=== PATIENT | female | born 1970 | race Caucasian/White ===

== ENCOUNTER → 2017-09-30 12:52 | Outpatient (CLI) | payer BC, SELFPAY ==
--- NOTE | 2017-09-30 12:57 | US_ITS ---
US transvaginal HISTORY: Right lower quadrant pain ITS.REASON: Abdominal/pelvic pain ORDERING PHYSICIAN: Cem Richmond MD PATIENT AGE: 46 years COMPARISON: None FINDINGS: The uterus is 10 x 6 x 7.3 cm with a combined endometrial thickness of 14 mm. The uterus is thickened There are multiple uterine fibroids present is difficult to determine the exact site of the fibroids. There are at least 5 fibroids present the largest along the posterior aspect of the uterine body measuring 5 x 4 cm. There is a partially calcified fibroid at 3 cm an additional 3.5 x 3.4 cm fibroid in the mid aspect of the uterus towards the fundus and a smaller 8 mm fibroid anteriorly The left ovary is 3.7 x 0.8 cm and contains a 2 cm x 2.8 cm cyst. The right ovary contains a small follicle at 9 mm. No cul-de-sac fluid evident. IMPRESSION: 1. Enlarged uterus with extensive fibroid involvement as described above. 2. Thickened endometrium at 14 mm. 3. 2.8 cm left ovarian cyst
== END ==
PROVIDERS: PCP Family Medicine; Visit Provider Nurse Practitioner Obstetrics & Gynecology
DX: R10.9 Unspecified abdominal pain (principal)
CPT/HCPCS: 76830

== ENCOUNTER → 2018-04-06 13:18 | Outpatient (CLI) | payer BC, SELFPAY ==
--- NOTE | 2018-04-06 13:34 | XR_ITS ---
XR chest 2V HISTORY: ITS.REASON: Edema ORDERING PHYSICIAN: SB Black PATIENT AGE: 47 years COMPARISON: None FINDINGS: The cardiomediastinal silhouette and pulmonary vascularity are within normal limits. The lungs are clear without infiltrates, suspicious nodules, or pleural effusions. A 7 mm nodular opacity is present in the right perihilar region nonspecific and may represent a granuloma. No acute bony abnormalities. IMPRESSION: 1. No acute finding. 2. Right perihilar nodular density possibly related to a granuloma. Follow-up radiograph in 6 months may confirm short-term stability
[2018-04-06 18:30] LABS: Basophils % 0.3 % (0.1-2.0); Eosinophils # 0.1 K/mm3 (0.0-0.4); Eosinophils % 1.9 % (0.1-12.0); Hematocrit 42.6 % (37.0-47.0); Lymphocytes # 1.3 K/mm3 (0.7-4.5); Lymphocytes % 23.9 K/mm3 (10-50); Mean Corpuscular Hemoglobin 32.6 pg (27.0-31.2); Mean Corpuscular Volume 98.8 fl (81-99); Mean Platelet Volume 8.5 fl (7.4-10.4); Monocytes # 0.3 K/mm3 (0.1-1.0); Monocytes % 5.8 % (1.7-9.3); Neutrophils # 3.8 K/mm3 (1.8-7.8); Neutrophils % 68.3 % (37.0-80.0); Platelet Count 251 K/mm3 (142-424); Red Blood Count 4.31 M/mm3 (4.20-5.40); Red Cell Distribution Width 12.7 % (11.5-17.5); White Blood Count 5.6 K/mm3 (4.8-10.8)
[2018-04-06 18:49] LABS: Alanine Aminotransferase 19 U/L (12-78); Albumin Level 3.9 gm/dL (3.4-5.0); Albumin/Globulin Ratio 1.2 (1.1-1.8); Alkaline Phosphatase 66 U/L (46-116); Anion Gap 13.8 mEq/L (5-15); Aspartate Amino Transferase 15 U/L (15-37); Bilirubin,Total 0.6 mg/dL (0.2-1.0); Blood Urea Nitrogen 12 mg/dL (7-18); Calcium 8.9 mg/dL (8.5-10.1); Carbon Dioxide 24 mmol/L (21.0-32.0); Chloride 103 mmol/L (98-107); Cholesterol 184 mg/dL (140-200); Creatinine,Serum 1.06 mg/dL (0.55-1.02); Estimated Glomerular Filt Rate 56 ml/min (>60); GFR (African American) 68 ML/MIN (>60); Globulin 3.3 gm/dl (1.3-3.2); Glucose 99 mg/dL (74-106); HDL Cholesterol 61 mg/dL (29-89); LDL Cholesterol 108 mg/dL (0-130); Potassium 3.8 mmoL/L (3.5-5.1); Sodium 137 mmol/L (136-145); T4 (Thyroxine) 10.2 ug/dl (4.7-13.3); Thyroid Stimulating Hormone 1.05 uIU/ml (0.358-3.740); Total Protein,Serum 7.2 gm/dL (6.4-8.2); Triglycerides 77 mg/dL (30-200); VLDL Cholesterol 15 mg/dL (0-40)
[2018-04-08 20:27] LABS: Vitamin D 25 Hydroxy 40.5 ng/mL (30.0-100.0)
== END ==
LOC: LAB 13:18 → RAD 13:37
PROVIDERS: PCP Physician Assistant; Visit Provider Physician Assistant
DX: R60.9 Edema, unspecified (principal); R63.5 Abnormal weight gain
CPT/HCPCS: 71046; 80053; 80061; 82652; 84436; 84443; 85025

== ENCOUNTER → 2018-04-20 10:12 | Outpatient (CLI) | payer BC, SELFPAY ==
--- NOTE | 2018-04-20 10:17 | CA_ITS ---
PROCEDURE: 2-D M-mode and color Doppler study INDICATIONS FOR THE TEST: Chest pain COPD Heart Murmur Tobacco Smoking+ Palpitations Fatigue Syncope Edema+ Hypertension Diabetes Mellitus Rheumatic Fever SOB COVARRUBIAS+Obesity Hyperlipidemia Family History HD Additional History weight gain PATIENT INFORMATION HEIGHT: 69 WEIGHT: 190 GENDER: Female B/P: 128/80 2-D/M-MODE INTERPRETATION: 2-D MEASUREMENTS OBSERVED VALUES IN CMS Right Ventricular Dimension (RVDd) 2.1 Interventricular Septum (Thickness)(IVsd) 1.1 Left Ventricular Internal Dimensions(LVIDd) 3.9 Left Ventricular Posterior Wall (Thickness)(LVPWd) 1.1 Aortic Root 3.3 Aortic Cusp Separation 2.3 Left Atrial Dimensions (LAD) 3.0 2D 1. Left atrium is normal size, left ventricle is normal size, there is no concentric left ventricular hypertrophy, visually estimated ejection fraction 55% with no regional wall motion abnormality. 2. The right atrium and right ventricle are normal size and contractility. 3. The aortic, mitral and tricuspid valve are grossly normal. 4. The pulmonic valve is poorly visualized. 5. No significant pericardial effusion noted. DOPPLER INTERROGATION: Doppler interrogation of the aortic, mitral and tricuspid valvular presence of mild mitral and tricuspid regurgitation, tricuspid regurgitation jet velocity is insufficient for calculation of the right ventricular systolic pressure, diastolic parameters are within normal range. CONCLUSION: 1. Normal left ventricular size, preserved left ventricular systolic function, visually estimated ejection fraction 55% with no regional wall motion abnormality, diastolic parameters are within normal range. 2. Mild mitral and tricuspid regurgitation 3. No significant pericardial effusion noted.
== END ==
PROVIDERS: PCP Physician Assistant; Visit Provider Physician Assistant
DX: R60.9 Edema, unspecified (principal); R63.5 Abnormal weight gain
CPT/HCPCS: 93306

== ENCOUNTER → 2019-06-19 15:14 | Outpatient (POV) | payer BC, SELFPAY | PROVIDERS: Visit Provider Dermatology | DX: Z00.00 Encounter for general adult medical examination without abnormal findings (principal) ==

== ENCOUNTER → 2019-06-20 16:45 | Outpatient (CLI) | payer BC, SELFPAY ==
--- NOTE | 2019-06-20 16:46 | MM_ITS ---
PROCEDURE: MM DIG SCREENING MAMM BI W/CAD Patient Age:48Y CLINICAL INDICATION: Routine Screening Mamm no hormones no new complaints noncontributory family history COMPARISON: MAMMO SCREEN WOMEN'S CTR from 06/16/2012 DMSB DIG MAMM-SCREEN SAUL from 10/16/2015 DMDBAV DIG MAMM-DX SAUL W ADD VIEWS from 06/30/2016 TECHNIQUE: Standard CC and MLO images were obtained. R2 CAD reviewed. Additional axillary CC view both breast FINDINGS: Areas of moderate dense fibroglandular elements bilaterally Right breast: Again note somewhat separate island of stable fibroglandular tissue at the deep axillary tail right breast-unchanged since studies back to 2011. This area is best demonstrated on MLO view but also appear stable on the CC view and and nicely seen on the axillary CC view from today. Follow-up 1 year. Healthcare providersbreast exam towards axillary tail of both breast encouraged at where it may encounter palpation of the slight asymmetric tissue here Left breast the heterogeneous breast tissue extends from the central breast towards upper-outer quadrant and appears stable to previous studies with no significant new areas of concern but recommend follow up bilateral mammogram in 1 year IMPRESSION: No new areas of significant concern. Overall stable appearing mammogram. Follow-up 1 year Asymmetric areas of moderate dense breast tissue, most notable area towards axillary tail of the right breast-but appears stable since 2012 on mammography BI-RAD Category: 2 Benign Finding(s) FOLLOW-UP: 1YR 1 Year Follow-up (A letter has been sent to the patient regarding results of the study.) Dictated by: Koffi Massey MD 06/21/2019 20:20 Electronically signed by Koffi Massey MD in [place] 06/21/2019 20:20
== END ==
PROVIDERS: PCP Physician Assistant; Visit Provider Physician Assistant
DX: Z12.31 Encounter for screening mammogram for malignant neoplasm of breast (principal)
CPT/HCPCS: 77067

== ENCOUNTER → 2020-08-28 16:41 | Outpatient (CLI) | payer BC, SELFPAY ==
[2020-08-28 18:34] LABS: Basophils % 0.7 % (0.1-2.0); Eosinophils # 0.1 K/mm3 (0.0-0.4); Eosinophils % 1.3 % (0.1-12.0); Hemoglobin 14.8 g/dL (12.2-16.2); Lymphocytes # 1.4 K/mm3 (0.7-4.5); Lymphocytes % 24.5 % (10-50); Mean Corpuscular HGB Conc 32.3 g/dL (31.8-35.4); Mean Corpuscular Hemoglobin 32.8 pg (27.0-31.2); Mean Corpuscular Volume 101.7 fl (81-99); Mean Platelet Volume 9.1 fl (7.4-10.4); Monocytes # 0.3 K/mm3 (0.1-1.0); Monocytes % 5.9 % (1.7-9.3); Neutrophils # 3.8 K/mm3 (1.8-7.8); Neutrophils % 67.7 % (37.0-80.0); Platelet Count 251 K/mm3 (142-424); Red Blood Count 4.53 M/mm3 (4.20-5.40); Red Cell Distribution Width 12.6 % (11.5-17.5); White Blood Count 5.7 K/mm3 (4.8-10.8)
[2020-08-28 18:41] LABS: Alanine Aminotransferase 19 U/L (12-78); Albumin Level 4.8 g/dl (3.5-5.0); Albumin/Globulin Ratio 1.5 (1.1-1.8); Alkaline Phosphatase 76 U/L (38-126); Anion Gap 14.7 mEq/L (5-15); Aspartate Amino Transferase 26 U/L (14-36); Bilirubin,Total 0.5 mg/dl (0.2-1.3); Blood Urea Nitrogen 14 mg/dl (7-17); Calcium 10.3 mg/dl (8.4-10.2); Carbon Dioxide 23 mmol/L (22.0-30.0); Chloride 105 mmol/L (98-107); Chol/HDL Ratio 4.2 (1-3.5); Cholesterol 242 mg/dl (140-200); Estimated Glomerular Filt Rate 59 ml/min (>60); GFR (African American) 72 ML/MIN (>60); Globulin 3.2 g/dL (1.3-3.2); Glucose 107 mg/dl (74-100); HDL Cholesterol 57 mg/dl (40-60); Potassium 3.7 mmoL/L (3.5-5.1); Sodium 139 mmol/L (136-145); Triglycerides 170 mg/dl (30-150); VLDL Cholesterol 34 mg/dL (0-40)
[2020-08-28 18:52] LABS: Direct LDL Cholesterol 152.57 mg/dL (100-129)
[2020-08-28 18:56] LABS: Free T4 (Free Thyroxine) 1.39 ng/dl (0.78-2.19)
[2020-08-28 18:58] LABS: 25-OH Vitamin D, Total 22.2 ng/mL (30-100)
[2020-08-28 19:12] LABS: Thyroid Stimulating Hormone 1.89 uIU/mL (0.465-4.68)
[2020-08-30 12:41] LABS: FSH 5.5 mIU/mL (.); LH 6.3 mIU/mL (.); Progesterone 3.2 ng/mL (.)
[2020-09-02 14:49] LABS: Estrogen 197 pg/mL (.)
== END ==
PROVIDERS: Visit Provider Physician Assistant
DX: N95.1 Menopausal and female climacteric states (principal); R53.83 Other fatigue; R60.9 Edema, unspecified; E55.9 Vitamin D deficiency, unspecified
CPT/HCPCS: 80053; 80061; 82306; 82672; 83001; 83002; 84144; 84439; 84443; 85025

== ENCOUNTER → 2020-09-12 15:39 | Outpatient (CLI) | payer BC, SELFPAY ==
--- NOTE | 2020-09-12 15:39 | MM_ITS ---
PROCEDURE: MM DIG SCREENING MAMM BI W/CAD Digital Breast Tomosynthesis Included CLINICAL INDICATION: Breast cancer screening There is no personal or family history of breast cancer. COMPARISON: MG DMSB DIG MAMM-SCREEN SAUL from 10/16/2015 MG DMDBAV DIG MAMM-DX SAUL W ADD VIEWS from 06/30/2016 MG MM DIG SCREENING MAMM BI W/CAD from 06/20/2019 TECHNIQUE: Standard CC and MLO images and 3D Tomosynthesis was obtained. R2 CAD reviewed. FINDINGS: Moderate diffuse somewhat heterogenic fibroglandular densities are seen throughout both breast. Again noted is asymmetric fibroglandular elements near the axillary tail right breast. There are stable tiny benign-appearing nodular lesions right breast. There is no suspicious lesion in either breast and no suspicious microcalcifications. There are small nodes in both axilla. IMPRESSION: Moderate heterogenic breast density with no suspicious lesions seen BI-RAD Category: 2 Benign Finding(s) FOLLOW-UP: 1YR 1 Year Follow-up (A letter has been sent to the patient regarding results of the study.) Dictated by: Dr. Brent Price MD 09/17/2020 11:55 Dr. Brent Price MD in [place] 09/17/2020 11:55
== END ==
PROVIDERS: PCP Physician Assistant; Visit Provider Physician Assistant
DX: Z12.31 Encounter for screening mammogram for malignant neoplasm of breast (principal)
CPT/HCPCS: 77063; 77067

== ENCOUNTER → 2021-08-27 14:10 | Outpatient (CLI) | payer BC, SELFPAY ==
[2021-08-27 14:18] LABS: Basophils # 0.1 K/mm3 (0-0.2); Basophils % 1.2 % (0.1-2.0); Eosinophils # 0.1 K/mm3 (0.0-0.4); Eosinophils % 1.2 % (0.1-12.0); Hematocrit 47.2 % (37.0-47.0); Hemoglobin 15.3 g/dL (12.2-16.2); Lymphocytes # 1.2 K/mm3 (0.7-4.5); Lymphocytes % 21.4 % (10-50); Mean Corpuscular HGB Conc 32.5 g/dL (31.8-35.4); Mean Corpuscular Volume 104.5 fl (81-99); Mean Platelet Volume 8.6 fl (7.4-10.4); Monocytes # 0.4 K/mm3 (0.1-1.0); Monocytes % 6.2 % (1.7-9.3); Neutrophils # 3.9 K/mm3 (1.8-7.8); Platelet Count 307 K/mm3 (142-424); Red Blood Count 4.52 M/mm3 (4.20-5.40); Red Cell Distribution Width 13.3 % (11.5-17.5); White Blood Count 5.6 K/mm3 (4.8-10.8)
[2021-08-27 15:03] LABS: Alanine Aminotransferase 17 U/L (12-78); Albumin Level 4.7 g/dl (3.5-5.0); Albumin/Globulin Ratio 1.7 (1.1-1.8); Alkaline Phosphatase 76 U/L (38-126); Anion Gap 13.7 mEq/L (5-15); Aspartate Amino Transferase 25 U/L (14-36); Bilirubin,Total 0.5 mg/dl (0.2-1.3); Blood Urea Nitrogen 8 mg/dl (7-17); Calcium 9.9 mg/dl (8.4-10.2); Carbon Dioxide 25 mmol/L (22.0-30.0); Chloride 101 mmol/L (98-107); Chol/HDL Ratio 3.6 (1-3.5); Cholesterol 209 mg/dl (140-200); Estimated Glomerular Filt Rate 67 ml/min (>60); GFR (African American) 81 ML/MIN (>60); Globulin 2.7 g/dL (1.3-3.2); Glucose 89 mg/dl (74-100); HDL Cholesterol 58 mg/dl (40-60); Potassium 3.7 mmoL/L (3.5-5.1); Sodium 136 mmol/L (136-145); Total Protein,Serum 7.4 g/dl (6.3-8.2); Triglycerides 110 mg/dl (30-150); VLDL Cholesterol 22 mg/dL (0-40)
[2021-08-27 15:14] LABS: Direct LDL Cholesterol 131.94 mg/dL (100-129)
[2021-08-27 15:19] LABS: Free T4 (Free Thyroxine) 1.36 ng/dl (0.78-2.19)
[2021-08-27 15:20] LABS: 25-OH Vitamin D, Total 69.4 ng/mL (30-100)
[2021-08-27 15:34] LABS: Thyroid Stimulating Hormone 0.97 uIU/mL (0.465-4.68)
[2021-08-29 09:34] LABS: FSH 23.2 mIU/mL (.); LH 28.9 mIU/mL (.); Progesterone 0.3 ng/mL (.)
[2021-08-30 00:08] LABS: Estrogen 273 pg/mL (.)
== END ==
PROVIDERS: Visit Provider Nurse Practitioner Family
DX: E28.319 Asymptomatic premature menopause (principal); E03.9 Hypothyroidism, unspecified; R53.83 Other fatigue; K59.00 Constipation, unspecified
CPT/HCPCS: 80053; 80061; 82306; 82672; 83001; 83002; 84144; 84439; 84443; 85025

== ENCOUNTER → 2022-08-12 13:04 | Outpatient (CLI) | payer BC, SELFPAY ==
[2022-08-12 16:22] LABS: Chloride 103 mmol/L (98-107)
[2022-08-12 16:23] LABS: Potassium 4.3 mmoL/L (3.5-5.1); Sodium 139 mmol/L (136-145)
[2022-08-12 16:24] LABS: Basophils # 0.1 K/mm3 (0-0.2); Basophils % 1.3 % (0.1-2.0); Eosinophils # 0.1 K/mm3 (0.0-0.4); Eosinophils % 2.5 % (0.1-12.0); Hematocrit 46.4 % (37.0-47.0); Hemoglobin 14.9 g/dL (12.2-16.2); Lymphocytes # 1.3 K/mm3 (0.7-4.5); Lymphocytes % 24.7 % (10-50); Mean Corpuscular HGB Conc 32.2 g/dL (31.8-35.4); Mean Corpuscular Volume 99.3 fl (81-99); Mean Platelet Volume 9.7 fl (7.4-10.4); Monocytes # 0.3 K/mm3 (0.1-1.0); Monocytes % 5.8 % (1.7-9.3); Neutrophils # 3.5 K/mm3 (1.8-7.8); Neutrophils % 65.6 % (37.0-80.0); Platelet Count 291 K/mm3 (142-424); Red Blood Count 4.67 M/mm3 (4.20-5.40); White Blood Count 5.4 K/mm3 (4.8-10.8)
[2022-08-12 16:25] LABS: Alanine Aminotransferase 21 U/L (12-78); Alkaline Phosphatase 101 U/L (38-126); Anion Gap 13.3 mEq/L (5-15); Aspartate Amino Transferase 28 U/L (14-36); Bilirubin,Total 0.8 mg/dl (0.2-1.3); Blood Urea Nitrogen 13 mg/dl (7-17); Carbon Dioxide 27 mmol/L (22.0-30.0); Cholesterol 235 mg/dl (140-200); Estimated Glomerular Filt Rate 66 ml/min (>60); GFR (African American) 80 ML/MIN (>60); Triglycerides 145 mg/dl (30-150); VLDL Cholesterol 29 mg/dL (0-40)
[2022-08-12 16:26] LABS: Albumin Level 4.4 g/dl (3.5-5.0); Albumin/Globulin Ratio 1.5 (1.1-1.8); Calcium 9.5 mg/dl (8.4-10.2); Chol/HDL Ratio 4.4 (1-3.5); Glucose 116 mg/dl (74-100); HDL Cholesterol 53 mg/dl (40-60); Total Protein,Serum 7.4 g/dl (6.3-8.2)
[2022-08-12 16:36] LABS: Direct LDL Cholesterol 130.91 mg/dL (100-129)
[2022-08-12 16:56] LABS: Thyroid Stimulating Hormone 0.65 uIU/mL (0.465-4.68)
[2022-08-12 19:44] LABS: 25-OH Vitamin D, Total 43.8 ng/mL (30-100)
[2022-08-12 20:19] LABS: Vitamin B12 276 pg/mL (239-931)
[2022-08-14 08:15] LABS: FSH 46.2 mIU/mL (.); LH 48.2 mIU/mL (.); Testosterone,Total 17 ng/dL (4-50)
[2022-08-17 22:07] LABS: Estrogen 127 pg/mL (.)
== END ==
PROVIDERS: PCP Physician Assistant; Visit Provider Physician Assistant
DX: N95.1 Menopausal and female climacteric states (principal)
CPT/HCPCS: 80053; 80061; 82306; 82607; 82672; 83001; 83002; 84403; 84443; 85025

== ENCOUNTER → 2022-08-24 10:29 | Outpatient (POV) | payer BC, SELFPAY | PROVIDERS: Visit Provider Dermatology | DX: Z00.00 Encounter for general adult medical examination without abnormal findings (principal) ==

== ENCOUNTER → 2022-08-24 14:07 | Outpatient (CLI) | payer BC, SELFPAY ==
--- NOTE | 2022-08-24 14:07 | CT_ITS ---
FINAL REPORT CLINICAL HISTORY: lung cancer screening current smoker 1ppd x32 years FINDINGS: Low-Dose Chest CT Axial images were obtained from the lung apex to the mid abdomen by computed tomography. Low-dose protocol was utilized. CTDI vol (mGy): 2.90 DLP (mGy-cm): 91.16 There is no axillary adenopathy. There is no hilar or mediastinal adenopathy. The heart is proper size. There is no pericardial or pleural effusion. Lung window images demonstrate no suspicious infiltrate or nodule. There is ground-glass opacity in both lower lobes, subpleural, infectious or inflammatory etiology is favored. Limited images of the upper abdomen demonstrate cortical scarring in the left kidney. IMPRESSION: Lung RADS category 1. Recommend 12 month follow-up low-dose chest CT. Modifier S: Ground-glass opacities, pneumonia not excluded. Reviewed, Interpreted and Dictated by Mahi Moore MD Transcribed by Usha Rodriguez Authenticated and [facility]
== END ==
PROVIDERS: PCP Physician Assistant; Visit Provider Physician Assistant
DX: Z87.891 Personal history of nicotine dependence (principal); Z12.2 Encounter for screening for malignant neoplasm of respiratory organs
CPT/HCPCS: 71271

== ENCOUNTER → 2022-08-27 12:35 | Outpatient (CLI) | payer BC, SELFPAY ==
--- NOTE | 2022-08-27 12:35 | MM_ITS ---
PROCEDURE INFORMATION: Exam: MG Bilateral Screening 3D Mammography Exam date and time: 08/27/2022 12:45 PM Age: 51 years old Clinical indication: Screening mammogram. TECHNIQUE: Imaging protocol: Bilateral Screening tomosynthesis and 2D mammography including computer-aided detection (CAD) when performed. COMPARISON: 1. MG MM DIG SCREENING MAMM BI W/CAD 09/12/2020 3:40 PM 2. MG MM DIG SCREENING MAMM BI W/CAD 06/20/2019 4:51 PM 3. MG DMDBAV DIG MAMM-DX SAUL W ADD VIEWS 06/30/2016 1:16 PM 4. MG DMSB DIG MAMM-SCREEN SAUL 10/16/2015 10:55 AM FINDINGS: MAMMOGRAPHY: Breast composition: There are scattered areas of fibroglandular density. Mass: None. Architectural distortion: No new or suspicious architectural distortion. Calcifications: No new or suspicious calcifications are present Asymmetric density: No new or suspicious asymmetric density is present Skin thickening: None. Axillary adenopathy: None. IMPRESSION: No mammographic evidence of malignancy. Recommend annual screening mammography unless otherwise clinically indicated. ASSESSMENT: BI-RADS category 1: Negative
== END ==
PROVIDERS: PCP Physician Assistant; Visit Provider Physician Assistant
DX: Z12.31 Encounter for screening mammogram for malignant neoplasm of breast (principal)
CPT/HCPCS: 77063; 77067

== ENCOUNTER 2023-08-11 09:50 | Outpatient (CLI) | payer BC, SELFPAY ==
[2023-08-11 19:11] LABS: Alanine Aminotransferase 29 U/L (12-78); Albumin Level 4.1 g/dl (3.5-5.0); Albumin/Globulin Ratio 1.5 (1.1-1.8); Alkaline Phosphatase 97 U/L (38-126); Anion Gap 9.8 mEq/L (5-15); Aspartate Amino Transferase 44 U/L (14-36); Bilirubin,Total 0.5 mg/dl (0.2-1.3); Blood Urea Nitrogen 16 mg/dl (7-17); Calcium 9.1 mg/dl (8.4-10.2); Carbon Dioxide 25 mmol/L (22.0-30.0); Chloride 103 mmol/L (98-107); Chol/HDL Ratio 4.5 (1-3.5); Cholesterol 226 mg/dl (140-200); Estimated Glomerular Filt Rate 66 ml/min (>60); GFR (African American) 80 ML/MIN (>60); Globulin 2.8 g/dL (1.3-3.2); Glucose 113 mg/dl (74-100); HDL Cholesterol 50 mg/dl (40-60); Potassium 3.8 mmoL/L (3.5-5.1); Sodium 134 mmol/L (136-145); Total Protein,Serum 6.9 g/dl (6.3-8.2); Triglycerides 112 mg/dl (30-150); VLDL Cholesterol 22 mg/dL (0-40)
[2023-08-11 19:25] LABS: Direct LDL Cholesterol 145.12 mg/dL (100-129)
[2023-08-11 19:32] LABS: 25-OH Vitamin D, Total 51.8 ng/mL (30-100)
[2023-08-11 19:44] LABS: Thyroid Stimulating Hormone 1.04 uIU/mL (0.465-4.68)
[2023-08-11 19:50] LABS: Basophils % 0.6 % (0.1-2.0); Eosinophils # 0.2 K/mm3 (0.0-0.4); Eosinophils % 3.1 % (0.1-12.0); Hematocrit 45.2 % (37.0-47.0); Hemoglobin 15.2 g/dL (12.2-16.2); Lymphocytes # 1.5 K/mm3 (0.7-4.5); Lymphocytes % 29.5 % (10-50); Mean Corpuscular HGB Conc 33.8 g/dL (31.8-35.4); Mean Corpuscular Hemoglobin 33.7 pg (27.0-31.2); Mean Platelet Volume 9.7 fl (7.4-10.4); Monocytes # 0.3 K/mm3 (0.1-1.0); Monocytes % 6.8 % (1.7-9.3); Neutrophils % 60.1 % (37.0-80.0); Platelet Count 242 K/mm3 (142-424); Red Blood Count 4.52 M/mm3 (4.20-5.40)
[2023-08-11 20:01] LABS: Iron 106 ug/dL (37-170)
[2023-08-11 20:03] LABS: Vitamin B12 317 pg/mL (239-931)
[2023-08-11 20:12] LABS: Total Iron Binding Capacity 324 ug/dL (265-497)
[2023-08-11 20:39] LABS: Ferritin 74.3 ng/ml (11.1-264)
== END 2023-08-12 23:59 | disposition home or self-care (01) ==
PROVIDERS: PCP Physician Assistant; Visit Provider Physician Assistant
DX: G25.81 Restless legs syndrome (principal); R60.9 Edema, unspecified; R73.09 Other abnormal glucose; R74.01 Elevation of levels of liver transaminase levels; E66.3 Overweight; Z68.29 Body mass index [BMI] 29.0-29.9, adult; Z79.899 Other long term (current) drug therapy
CPT/HCPCS: 80053; 80061; 82306; 82607; 82728; 83036; 83540; 83550; 84443; 85025

== ENCOUNTER 2023-08-25 15:52 | Outpatient (CLI) | payer BC, SELFPAY ==
--- NOTE | 2023-08-25 15:52 | MM_ITS ---
PROCEDURE INFORMATION: Exam: MG Bilateral Screening 3D Mammography Exam date and time: 08/25/2023 3:51 PM Age: 52 years old Clinical indication: Screening examination TECHNIQUE: Imaging protocol: Bilateral Screening tomosynthesis and 2D mammography including computer-aided detection (CAD) when performed. COMPARISON: 1. MG MM DIG SCREENING MAMM BI W/CAD 08/27/2022 12:45 PM 2. MG MM DIG SCREENING MAMM BI W/CAD 09/12/2020 3:40 PM FINDINGS: MAMMOGRAPHY: Breast composition: There are scattered areas of fibroglandular density. Mass: None. Architectural distortion: None. Calcifications: No suspicious calcifications. Asymmetric density: None. Skin thickening: None. Axillary adenopathy: None. IMPRESSION: No mammographic evidence of malignancy. Annual screening is recommended unless otherwise clinically indicated. ASSESSMENT: BI-RADS Category 1: Negative
== END 2023-08-25 23:59 ==
LOC: RAD 15:52
PROVIDERS: PCP Physician Assistant; Visit Provider Physician Assistant
DX: Z12.39 Encounter for other screening for malignant neoplasm of breast (principal)
CPT/HCPCS: 77063; 77067

== ENCOUNTER 2024-05-21 13:42 | Outpatient (CLI) | payer BC, SELFPAY ==
[2024-05-21 12:07] LABS: Microscopic, Urine URINE MICROSCOPIC (MICROSCOPIC)
[2024-05-21 12:43] LABS: Basophils % 0.5 % (0.1-2.0); Eosinophils # 0.1 K/mm3 (0.0-0.4); Hemoglobin 15.8 g/dL (12.2-16.2); Lymphocytes # 1.3 K/mm3 (0.7-4.5); Lymphocytes % 24.3 % (10-50); Mean Corpuscular Hemoglobin 34.1 pg (27.0-31.2); Mean Corpuscular Volume 97.3 fl (81-99); Mean Platelet Volume 8.6 fl (7.4-10.4); Monocytes # 0.4 K/mm3 (0.1-1.0); Monocytes % 6.3 % (1.7-9.3); Neutrophils # 3.7 K/mm3 (1.8-7.8); Platelet Count 220 K/mm3 (142-424); Red Blood Count 4.62 M/mm3 (4.20-5.40); Red Cell Distribution Width 13.3 % (11.5-17.5); White Blood Count 5.5 K/mm3 (4.8-10.8)
[2024-05-21 12:54] LABS: Appearance,Urine CLEAR (Clear); Bilirubin,Urine Negative (Negative); Blood, Urine Negative (Negative); Color,Urine YELLOW (Yellow); Glucose,Urine (UA) Negative (Negative); Ketones,Urine Negative (Negative); Leukocyte Esterase,Urine Negative (Negative); Nitrate,Urine Negative (Negative); Protein,Urine Negative (Negative); Urobilinogen,Urine 0.2 EU/dl (0.2)
[2024-05-21 13:00] LABS: Albumin Level 4.8 g/dl (3.5-5.0); Chloride 101 mmol/L (98-107); Sodium 135 mmol/L (136-145)
[2024-05-21 13:01] LABS: Potassium 3.5 mmoL/L (3.5-5.1)
[2024-05-21 13:03] LABS: Alanine Aminotransferase 21 U/L (12-78); Albumin/Globulin Ratio 1.7 (1.1-1.8); Alkaline Phosphatase 100 U/L (38-126); Anion Gap 11.5 mEq/L (5-15); Aspartate Amino Transferase 23 U/L (14-36); Bilirubin,Total 0.7 mg/dl (0.2-1.3); Blood Urea Nitrogen 16 mg/dl (7-17); Carbon Dioxide 26 mmol/L (22.0-30.0); Cholesterol 259 mg/dl (140-200); Estimated Glomerular Filt Rate 66 ml/min (>60); GFR (African American) 80 ML/MIN (>60); Globulin 2.8 g/dL (1.3-3.2); Total Protein,Serum 7.6 g/dl (6.3-8.2); Triglycerides 164 mg/dl (30-150); VLDL Cholesterol 33 mg/dL (0-40)
[2024-05-21 13:04] LABS: Calcium 9.9 mg/dl (8.4-10.2); Glucose 107 mg/dl (74-100); HDL Cholesterol 52 mg/dl (40-60); Iron 158 ug/dL (37-170)
[2024-05-21 13:13] LABS: Total Iron Binding Capacity 337 ug/dL (265-497)
[2024-05-21 13:15] LABS: Direct LDL Cholesterol 156.71 mg/dL (100-129)
[2024-05-21 13:21] LABS: Squamous Epithelial Cell,Urine Occasional #/hpf (0-5)
[2024-05-21 13:22] LABS: 25-OH Vitamin D, Total 67.8 ng/mL (30-100)
[2024-05-21 13:35] LABS: Thyroid Stimulating Hormone 1.31 uIU/mL (0.465-4.68)
[2024-05-21 13:39] LABS: Ferritin 79.8 ng/ml (11.1-264)
[2024-05-21 13:54] LABS: Vitamin B12 235 pg/mL (239-931)
[2024-05-21 14:15] LABS: Free T4 (Free Thyroxine) 1.36 ng/dl (0.78-2.19)
[2024-05-21 14:18] LABS: Hemoglobin A1C 5.1 % (4.0-6.0)
[2024-05-21 14:48] LABS: HIV (1&2) Antibody Rapid NONREACTIVE (NONREACTIVE)
[2024-05-22 08:19] LABS: HCV Ab Non Reactive (Non Reactive)
== END 2024-05-21 23:59 | disposition home or self-care (01) ==
LOC: LAB.DROPOF 13:42
PROVIDERS: PCP Nurse Practitioner Family; Visit Provider Nurse Practitioner Family
DX: Z11.4 Encounter for screening for human immunodeficiency virus [HIV] (principal); R00.2 Palpitations; R53.83 Other fatigue; Z11.59 Encounter for screening for other viral diseases; R60.0 Localized edema; Z13.1 Encounter for screening for diabetes mellitus; E53.8 Deficiency of other specified B group vitamins; E78.5 Hyperlipidemia, unspecified
CPT/HCPCS: 80050; 80053; 80061; 81001; 82306; 82607; 82728; 83036; 83540; 83550; 84439; 84443; 85025; 86803; 87086; 87389

== ENCOUNTER 2024-05-23 12:03 | Outpatient (CLI) | payer BC, SELFPAY | END 2024-05-23 23:59 | disposition home or self-care (01) | LOC: RT 12:04 | PROVIDERS: PCP Nurse Practitioner Family; Visit Provider Nurse Practitioner Family | DX: R00.2 Palpitations (principal) | CPT/HCPCS: 93270 ==

== ENCOUNTER 2024-06-04 12:38 | Outpatient (CLI) | payer BC, SELFPAY ==
--- NOTE | 2024-06-04 12:43 | CA_ITS ---
APPROVED REPORT EXAM: Comprehensive 2D, Doppler, and color-flow Echocardiogram Realty Loan Specialist: Shani Pike RVT Ht: 5 ft 10 in Wt: 198lbs BSA: 2.08 BP: 128/88 mmHg Indications: EDEMA,PALPS,SMOKER,HLD 2D Dimensions LA Volume 33.20 mL LA Volume Index 15.96 mL/m2 (M/F) 16-34 M-Mode Dimensions RVDd 1.52 cm (0.9-2.6) LA Diam 2.93 cm (1.9-4.0) LVDd 4.97 cm (3.5-5.7) LVDs 3.34 cm (3.5-5.7) IVSd 0.95 cm (0.6-1.1) PWd 0.53 cm (0.6-1.1) EF (Teich) 61.10% FS 32.80% EDV (Teich) 116.60 mL TAPSE 2.54 (<1.7) ESV (Teich) 45.40 mL LV Diastology E Decel Time 147 (160-240 msec) E/A Ratio 1.2 Aortic Valve NIA Index 1.16 cm2/m2 AoV Peak Maxx. 120.0 (50-130 cm/s) AO Peak GR. 5.70 mmHg AO Mean GR. 3.70 (<5 mmHg) AO VTI 24.4 (18-25 cm) NIA (VTI) 2.47 (2.5-4.5 cm2) Mitral Valve MV E Max Maxx. 64.0 (40-130 cm/s) MV A Velocity 54.0 (40-130 cm/s) E/A Ratio 1.17 MV PHT 43.0 ms Pulmonary Valve PV Peak Velocity 88.0 (50-150 cm/s) Left Ventricle The left ventricle is normal size. The left ventricular systolic function is normal. The left ventricular ejection fraction is within the normal range. There is normal left ventricular wall thickness. There is normal LV segmental wall motion. The left ventricular diastolic function is normal. LVEF is 55%. Right Ventricle The right ventricle is normal size. The right ventricular systolic function is normal. Atria The left atrium size is normal. The right atrium size is normal. There is no Doppler evidence of interatrial shunt. Aortic Valve The aortic valve opens well. There is no aortic valvular stenosis. No aortic regurgitation is present. Mitral Valve The mitral valve is normal in structure. No evidence of mitral valve stenosis. There is no mitral valve regurgitation noted. Tricuspid Valve The tricuspid valve leaflets are thin and pliable. Trace tricuspid regurgitation. There is insufficient TR jet to estimate RVSP. Pulmonic Valve The pulmonary valve is normal in structure. Trace pulmonic regurgitation. Great Vessels The aortic root is normal in size. The ascending aorta is not well-visualized. IVC is normal in size and collapses >50% with inspiration. Pericardium There is no pericardial effusion. Other Information Study Quality: Adequate Conclusion Normal biventricular systolic function. No significant valvular stenosis or regurgitation. Electronically signed by : Kitty Nguyen MD 06/05/2024 14:56:23
== END 2024-06-04 23:59 | disposition home or self-care (01) ==
LOC: RT 12:40
PROVIDERS: PCP Nurse Practitioner Family; Visit Provider Nurse Practitioner Family
DX: R00.2 Palpitations (principal); R60.0 Localized edema; R91.8 Other nonspecific abnormal finding of lung field; F17.210 Nicotine dependence, cigarettes, uncomplicated
CPT/HCPCS: 71271; 93306

== ENCOUNTER 2024-06-05 15:17 | Outpatient (CLI) | payer BC, SELFPAY ==
[2024-06-05 16:46] LABS: Creatinine,Urine Random 38 mg/dL (Not Estab.); Microalbumin < 6.000 mg/L (0-16.7)
== END 2024-06-05 23:59 | disposition home or self-care (01) ==
LOC: LAB 15:18
PROVIDERS: PCP Nurse Practitioner Family; Visit Provider Internal Medicine
DX: R60.9 Edema, unspecified (principal); R00.2 Palpitations; E78.5 Hyperlipidemia, unspecified; F17.200 Nicotine dependence, unspecified, uncomplicated
CPT/HCPCS: 82043; 82570

== ENCOUNTER 2024-06-28 08:40 | Outpatient (CLI) | payer BC, SELFPAY ==
--- NOTE | 2024-06-28 08:44 | CA_ITS ---
FINAL REPORT TECHNIQUE: Bilateral lower extremity venous duplex was performed with augmentation and compression. CLINICAL HISTORY: Edema x years , pain with palpation, HLD, HTN, smoker FINDINGS: Proper flow is seen throughout the deep venous systems bilaterally. There is no evidence of deep venous thrombosis. IMPRESSION: No evidence of deep venous thrombosis. Reviewed, Interpreted and Dictated by Petr Torres MD Transcribed by Krystina Ohara Authenticated and [facility]
--- NOTE | 2024-06-28 08:44 | CA_ITS ---
FINAL REPORT CLINICAL HISTORY: HLD, HTN, smoker, edema x years per patient, pain in bilateral lower extremities with palpation. COMPARISON: None FINDINGS: BILATERAL LOWER EXTREMITY DUPLEX DOPPLER Color Doppler and duplex Doppler of the bilateral lower extremity was performed. Spectral analysis was also performed. Velocities were measured at multiple levels. All velocities are in centimeters per second. RIGHT [employer]IC[employer] PROFESSOR: 99 Profunda: 53 SFA Prox: 65 SFA Mid: 85 SFA Distal: 62 HAND COPER Prox: 69 HAND COPER Mid: 40 HAND COPER Dist: 96 Per Prox: 76 Per Mid: 81 Per Dist: 80 Waveforms are triphasic throughout. LEFT [employer]EST [employer]IC[employer] PROFESSOR: 155 Profunda: 51 SFA Prox: 80 SFA Mid: 97 SFA Distal: 104 HAND COPER Prox: 56 HAND COPER Mid: 53 HAND COPER Dist: 64 Per Prox: 69 Per Mid: 51 Per Dist: 64 Waveforms are triphasic throughout. IMPRESSION: Waveforms are noted to be triphasic throughout bilaterally. No levels of stenosis or occlusion are identified. Reviewed, Interpreted and Dictated by Petr Torres MD Transcribed by Yasemin Wynne Authenticated and [facility]
--- NOTE | 2024-06-28 09:42 | CT_ITS ---
FINAL REPORT CLINICAL HISTORY: edema of lower extremities FINDINGS: The lung bases are clear. The liver is mildly fatty infiltrated. The spleen and pancreas are unremarkable. The adrenals are normal. The pancreas is unremarkable. There is a benign-appearing cyst in the left kidney measuring up to 1.6 cm. Otherwise, the kidneys enhance appropriately. Precontrast images demonstrate no nephrolithiasis. There is a small fat-containing umbilical hernia. The appendix is normal. Urinary bladder is unremarkable. There is no adenopathy or free fluid. IMPRESSION: No acute process Reviewed, Interpreted and Dictated by Petr Torres MD Transcribed by Krystina Ohara Authenticated and [facility]
[2024-06-28] MEDS: SODIUM CHLORIDE 0.9% 10ML SYR (RAD ONLY) 10 ML IV (10:07)
[2024-06-28] MEDS: IOPAMIDOL-370 (76%);100ML BOTTLE 75 ML IV (10:07)
== END 2024-06-28 23:59 | disposition home or self-care (01) ==
LOC: RT 08:41
PROVIDERS: PCP Nurse Practitioner Family; Visit Provider Internal Medicine
DX: M79.604 Pain in right leg (principal); M79.605 Pain in left leg; R60.9 Edema, unspecified; R00.2 Palpitations; E78.5 Hyperlipidemia, unspecified; F17.200 Nicotine dependence, unspecified, uncomplicated
CPT/HCPCS: 74178; 93925; 93970; Q9967

== ENCOUNTER 2024-07-16 10:00 | Outpatient (CLI) | payer BC, SELFPAY | END 2024-07-16 23:59 | disposition home or self-care (01) | LOC: LAB.DROPOF 07-17 14:47 | PROVIDERS: PCP Student in an Organized Health Care Education/Training Program; Visit Provider Student in an Organized Health Care Education/Training Program | DX: J02.9 Acute pharyngitis, unspecified (principal) | CPT/HCPCS: 87070 ==

== ENCOUNTER 2025-02-07 09:41 | Outpatient (CLI) | payer BC, SELFPAY ==
--- OUTSIDE RECORDS SUMMARY | 2012-05-31 10:40 | XMS_ITS | Continuity of Care Document ---
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 Name Role Phone Juan Carlos Garcia CNP Unavailable Unavailable Allergies, Adverse Reactions, Alerts Substance Reaction Status Criticality VARENICLINE TARTRATE Active No Info rmation Medications Medication Instructions Dosage Effective Dates (start - stop) Status Comments Requip 2 mg Tab take 1 tablet (2MG) by ORAL route 3 times every day - Active Procedures Procedure Date Cytopath Cerv/vag Thin Prep; R 12 Preven Meds E&m Estab Pt; 40-64 012 Preven Meds E&m Estab Pt; 18- 011 Preven Meds E&m Estab Pt; 18- 011 Cytopath Cerv/vag Thin Prep; R 11 Preven Meds E&m Estab Pt; 18-3 10 Cytopath Cerv/vag Thin Prep; R 10 Results Test Name Date and Time Measure Units Reference Range Abnormal Flag Status Comments Panel Description: Pap Final SPECIMEN : source: AP Specimen . 12 15:40:00 REPORT Final REPORTClient I D: [id number]: GERARDO STUART [id number] ding: JUAN CARLOS GARCIA CNP KDate of Service: 05/31/2012 Date Received: 06/01/2012CYTOPATH OLOGY REPORT Client ID: [id number]: Cervical - ThinPrep Pap with Imaging - HPV test if ASCUSresultLMP: 05/21/2012SPECIMEN ADEQUACY:Satisfact ory for evaluation; endocervical/trans formation zone componentpresent.G ENERAL CATEGORIZATION:Neg ative for Intraepithelial Lesion and MalignancyPLACE OF SERVICE:This test was performed at the [facility], [address] [place] [address], [place] [id number] Note:The Pap smear is a screening test for the detection of cervical cancerand its precursor lesions. False positive and false negative resultscan occur. The test should be performed at regular intervals, andpositive results should be confirmed before definitive therapy.Additional testing methods may be helpful in detecting abnormalities eulogio clinical management.Final Diagnosis by Boo HERNANDEZ(ASCP). Electronically [id number]/06/2012 03:40 PMPerformed by:[facility] ([facility]) Advance Directives Directive Yes / No Effective Date File Name Resuscitation Not Answered N/A N/A Life Support Not Answered N/A N/A Intubation Not Answered N/A N/A Antibiotics Not Answered N/A N/A IV Fluid Support Not Answered N/A N/A Tube Feed Not Answered N/A N/A Other Directive N/A N/A WARNING:The information contained in this section is historical and is provided for information only and does not constitute a legal document or any assurance that the information is still accurate. Please verify the information with the dos santos of the legal document before using it for clinical purposes. Encounters Encounter Description Practice Location Reason(s) For Visit Diagnoses Date Provider Providers Copied on Encounter Preven [facility]s E&m Estab Pt; 40-64 [facility], [address], [place], [place], [id number], tel:[phone] [facility] annual visit (chief complaint) No Information 2 Jose Cheatham. [address], [place], [id number], [place]. tel:[phone] Preven [facility] E&m Estab Pt; 18-39 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 [address], [place], [id number], [place]. tel:[phone] [facility] E&m Estab Pt; 18-3 [facility], [address], [place], [place], [id number], [place] tel:[phone] [facility] annual visit (chief complaint) No Information Sep-2 0 Laura Cotto. [address], [place], [id number], [place]. tel:[phone] Family History Family Member Type Diagnosis Age At Onset No Information Payers Payer name Insurance type Covered alliance party ID Authoriza tibernardo(s) Reena Blue Cross / Blue Shield [id number] Social History Type Description Quantity Date Captured Comments Alcohol Use Details Caffeine Use Details Tobacco Use Status No Information Smoking Status Current every day smoker 2011 Sex Female Vital Signs Date / Time: Height Weight BMI Pulse Rate Blood Pressure Temperature Respiratory Rate Body Surface Area Head Circumference Head Circ. Percentile Wt./Pineda. Percentile BMI percentile Pulse Ox Inhaled Ox 2:32 PM 70.00 in 165.00 lbs 23.6 7 kg/m eter (2) 120/80 mm[Hg] Chief Complaint And Reason For Visit From encounter dated '05/31/2012 14:40'. annual visit (chief complaint) Reason For Referral Reason For Referral No Information Plan Of Treatment Date Type Action Status Goal PAP. Due on due Future Order: Lab Order ThinPrep Pap with Imaging-HPV test if ASCUS Pap result (T2), Collected on: Ordered History Of Present Illness Encounter Date Complaint History Of Prese nt Illness No Information Functional Status Date Functional Assessmen t No Information Instructions Date Instruction Additional Infor mation No Information Assessments Type Assessment Date No Information Patient Care Teams Name Effective Dates (start - stop) Status Members No Information
[2025-02-07 10:08] LABS: Hematocrit 40.3 % (37.0-47.0); Hemoglobin 13.7 g/dL (12.2-16.2); Immature Granulocytes % 0.6 %; Mean Corpuscular HGB Conc 34.0 g/dL (31.8-35.4); Mean Corpuscular Hemoglobin 33.3 pg (27.0-31.2); Mean Corpuscular Volume 98.1 fl (81-99); Nucleated Red Blood Cells % 0 %; Platelet Count 219 K/mm3 (142-424); Red Blood Count 4.11 M/mm3 (4.20-5.40); Red Cell Distribution Width-SD 44.4 fL; White Blood Count 5.2 K/mm3 (4.8-10.8)
[2025-02-07 10:39] LABS: Alanine Aminotransferase 20 U/L (12-78); Albumin Level 4.0 g/dl (3.5-5.0); Albumin/Globulin Ratio 1.6 (1.1-1.8); Alkaline Phosphatase 79 U/L (38-126); Anion Gap 13.3 mEq/L (5-15); Aspartate Amino Transferase 25 U/L (14-36); Bilirubin,Total 0.5 mg/dl (0.2-1.3); Blood Urea Nitrogen 15 mg/dl (7-17); Calcium 9.2 mg/dl (8.4-10.2); Carbon Dioxide 22 mmol/L (22.0-30.0); Chloride 105 mmol/L (98-107); Cholesterol 162 mg/dl (140-200); Creatinine,Serum 0.90 mg/dl (0.52-1.04); Estimated Glomerular Filt Rate 65 ml/min (>60); GFR (African American) 79 ML/MIN (>60); Globulin 2.5 g/dL (1.3-3.2); Glucose 103 mg/dl (74-100); HDL Cholesterol 53 mg/dl (40-60); Potassium 4.3 mmoL/L (3.5-5.1); Sodium 136 mmol/L (136-145); Total Protein,Serum 6.5 g/dl (6.3-8.2); Triglycerides 108 mg/dl (30-150)
[2025-02-07 10:56] LABS: 25-OH Vitamin D, Total 56.2 ng/mL (30-100)
== END 2025-02-07 23:59 | disposition home or self-care (01) ==
LOC: LAB 09:42
PROVIDERS: PCP Nurse Practitioner Family; Visit Provider Nurse Practitioner Obstetrics & Gynecology
DX: N95.1 Menopausal and female climacteric states (principal); Z79.890 Hormone replacement therapy
CPT/HCPCS: 36415; 80053; 80061; 82306; 85025

== ENCOUNTER 2025-03-28 09:03 | Outpatient (CLI) | payer BC, SELFPAY ==
[2025-03-28 15:55] LABS: Free T4 (Free Thyroxine) 1.40 ng/dl (0.78-2.19)
[2025-03-28 16:08] LABS: Thyroid Stimulating Hormone 1.30 uIU/mL (0.465-4.68)
[2025-03-28 16:27] LABS: Vitamin B12 277 pg/mL (239-931)
[2025-03-28 17:53] LABS: Hemoglobin A1C 4.9 % (4.0-6.0)
== END 2025-03-28 23:59 | disposition home or self-care (01) ==
LOC: LAB.DROPOF 03-29 14:20
PROVIDERS: PCP Nurse Practitioner Family; Visit Provider Nurse Practitioner Family
DX: E11.9 Type 2 diabetes mellitus without complications (principal); E53.8 Deficiency of other specified B group vitamins; R60.9 Edema, unspecified; R91.8 Other nonspecific abnormal finding of lung field; Z13.1 Encounter for screening for diabetes mellitus; F17.210 Nicotine dependence, cigarettes, uncomplicated; E78.5 Hyperlipidemia, unspecified; G25.81 Restless legs syndrome; Z68.28 Body mass index [BMI] 28.0-28.9, adult; Z83.49 Family history of other endocrine, nutritional and metabolic diseases; G47.33 Obstructive sleep apnea (adult) (pediatric)
CPT/HCPCS: 82607; 83036; 84439; 84443; 86376